=== PATIENT | male | born 1980 | race African-American/Black ===

== ENCOUNTER → 2017-05-11 | Outpatient (CLI) | payer OTHER | LOC: M RAD 08:59 | DX: M70.21 Olecranon bursitis, right elbow (principal); S59.901A Unspecified injury of right elbow, initial encounter; S49.92XA Unspecified injury of left shoulder and upper arm, initial encounter; V89.2XXA Person injured in unspecified motor-vehicle accident, traffic, initial encounter; Y92.89 Other specified places as the place of occurrence of the external cause; Y93.89 Activity, other specified; Y99.8 Other external cause status | CPT/HCPCS: 73030 ==